=== PATIENT | male | born 1955 | race Hispanic/Latino ===

== ENCOUNTER 2019-06-15 13:25 | Emergency (ER) | payer OTHER, MEDICARE, SELFPAY ==
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
[2019-06-15 13:40] VITALS: BP 136/78; PULSE 69; RESP 16; TEMP 37.2; O2SAT 99
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
== END 2019-06-15 15:05 | disposition home or self-care (01) ==
PROVIDERS: Emergency Provider Emergency Medicine; PCP Internal Medicine
DX: S16.1XXA Strain of muscle, fascia and tendon at neck level, initial encounter (principal); F17.200 Nicotine dependence, unspecified, uncomplicated; K86.81 Exocrine pancreatic insufficiency; V53.5XXA Driver of pick-up truck or van injured in collision with car, pick-up truck or van in traffic accident, initial encounter
CPT/HCPCS: 72040; 99283

== ENCOUNTER 2019-10-31 11:02 | Outpatient (CLI) | payer MEDICARE, SELFPAY ==
[2019-10-31 11:57] LABS: Basophils Percent Auto 0.6 % (0.2-1.2); Eosinophils Absolute Auto 0.1 K/mm3 (0-0.3); Eosinophils Percent Auto 1.8 % (0-4.4); Hematocrit 42.5 % (42.0-52.0); Hemoglobin 14.1 g/dL (14.0-18.0); Immature Granulocyte Absolute 0.01 K/mm3 (0.00-0.031); Immature Granulocyte Percent A 0.2 % (0-0.5); Lymphocytes Absolute Auto 2.61 K/mm3 (0.9-3.2); Lymphocytes Percent Auto 39.9 % (18.3-44.2); Mean Corpuscular HGB Conc 33.2 g/dl (32-36); Mean Corpuscular Hemoglobin 28.2 pg (26-34); Mean Platelet Volume 10.1 fl (7.4-10.4); Monocytes Absolute Auto 0.5 K/mm3 (0.1-0.6); Monocytes Percent Auto 7.5 % (2.6-8.5); Neutrophils Absolute Auto 3.3 K/mm3 (1.3-6.7); Platelet Count Result 235 k/mm3 (150-375); Red Cell Distribution Width 14.9 % (11.5-14.5); White Blood Count 6.5 K/mm3 (4.5-10.0)
[2019-10-31 12:17] LABS: Alanine Aminotransferase 17 U/L (4-50); Aspartate Amino Transferase 22 U/L (17-59); Blood Urea Nitrogen 21 mg/dL (9-20); Carbon Dioxide 22 mmol/L (22-30); Chloride 109 mmol/L (98-107); Cholesterol 177 mg/dL (0-200); Estimated Glomerular Filt Rate > 60; Glucose 128 mg/dL (75-110); HDL Direct 34 mg/dL; Magnesium 1.8 mg/dL (1.6-2.3); Sodium 137 mmol/L (137-145); Triglycerides 98 mg/dL (<150); Uric Acid 4.7 mg/dL (3.5-8.5)
[2019-10-31 12:22] LABS: Hemoglobin A1C 7.2 % (<5.7)
[2019-10-31 12:28] LABS: LDL Cholesterol Direct 125 mg/dL
[2019-10-31 12:51] LABS: Free T4 Free Thyroxine 1.14 ng/mL (0.78-2.19)
[2019-10-31 13:01] LABS: Prostate Specific Antigen 1.2 ng/mL (< OR = 4.0)
[2019-10-31 13:41] LABS: Folic Acid 11.4 ng/mL (2.76->20)
[2019-11-04 13:22] LABS: Testosterone Free 31.6 pg/mL (35.0-155.0); Testosterone Total 298 ng/dL (250-1100)
== END 2019-10-31 11:03 | disposition home or self-care (01) ==
LOC: ANHLAB 11:04
PROVIDERS: PCP Internal Medicine; Visit Provider Internal Medicine
DX: E11.9 Type 2 diabetes mellitus without complications (principal); I10 Essential (primary) hypertension; R53.83 Other fatigue; E56.9 Vitamin deficiency, unspecified; N52.1 Erectile dysfunction due to diseases classified elsewhere; Z13.21 Encounter for screening for nutritional disorder; E78.2 Mixed hyperlipidemia; Z12.5 Encounter for screening for malignant neoplasm of prostate; K86.81 Exocrine pancreatic insufficiency; E55.9 Vitamin D deficiency, unspecified
CPT/HCPCS: 36415; 80048; 80061; 82306; 82607; 82746; 83036; 83735; 84153; 84402; 84403; 84439; 84443; 84450; 84460; 84550; 85025; G0103

== ENCOUNTER 2020-09-30 10:45 | Outpatient (CLI) | payer MEDICARE, SELFPAY ==
[2020-09-30 11:34] LABS: Hemoglobin A1C 8.9 % (<5.7)
[2020-09-30 11:38] LABS: Alanine Aminotransferase 18 U/L (4-50); Albumin Level 4.1 g/dL (3.5-5.1); Alkaline Phosphatase 110 U/L (38-126); Anion Gap 9 mmol/L (8-16); Aspartate Amino Transferase 20 U/L (17-59); Bilirubin,Total 0.4 mg/dL (0.2-1.3); Blood Urea Nitrogen 19 mg/dL (9-20); Calcium 9.9 mg/dL (8.4-10.2); Carbon Dioxide 26 mmol/L (22-30); Chloride 104 mmol/L (98-107); Cholesterol 270 mg/dL (0-200); Estimated Glomerular Filt Rate > 60; Glucose 288 mg/dL (75-110); HDL Direct 39 mg/dL; Potassium 4.5 mmol/L (3.4-5.0); Sodium 139 mmol/L (137-145); Triglycerides 154 mg/dL (<150)
[2020-09-30 11:48] LABS: LDL Cholesterol Direct 158 mg/dL
[2020-09-30 12:08] LABS: Prostate Specific Antigen 1.2 ng/mL (< OR = 4.0)
[2020-09-30 12:14] LABS: Vitamin D 25 Hydroxy 43.3 ng/mL
[2020-10-03 12:36] LABS: Testosterone Total 271 ng/dL (250-1100)
== END 2020-09-30 10:46 | disposition home or self-care (01) ==
PROVIDERS: PCP Internal Medicine; Visit Provider Nurse Practitioner
DX: Z12.5 Encounter for screening for malignant neoplasm of prostate (principal); E55.9 Vitamin D deficiency, unspecified; E29.1 Testicular hypofunction; E11.9 Type 2 diabetes mellitus without complications
CPT/HCPCS: 36415; 80053; 80061; 82306; 83036; 84153; 84403; G0103

== ENCOUNTER 2020-10-04 14:29 | Emergency (ER) | payer MEDICARE, SELFPAY ==
[2020-10-04] VITALS (15 sets, daily range): BP systolic 112–137; BP diastolic 66–86; PULSE 60–83; RESP 14–29; TEMP 36.3–36.8; O2SAT 88–100
--- NOTE | ~2020-10-04 | CT_ITS ---
EXAMINATION: CT lumbar spine wo con DATE: 10/04/2020 16:45 INDICATION: Back pain TECHNIQUE: Computed tomography (CT) of the lumbar spine was performed without intravenous contrast. A utomated exposure control and iterative reconstruction technique were employed. Exam dose: 483.15 mG y-cm total exam DLP. COMPARISON: 09/15/2015 lumbar spine 04/05/2011 CT lumbar spine 02/25/2018 MRI lumbar spine FINDINGS: Normal alignment of the lumbar spine. No fracture or bone destruction is evident. There is degenerative change at the apophyseal joints L4-5 and L5-S1, with associated minimal grade 1 anterolisthesis at L4-5. Moderate degenerative disc disease at T11-12. Mild degenerative disc disease at T12-L1. There is moderately severe degenerative disc disease at L5-S1 with prominent posterior disc bulging. Abdominal aortic and iliac arterial calcifications as well as prominent proximal bilateral renal tammy ry, celiac and superior mesenteric artery calcifications. No abdominal aortic aneurysm.. Lumbar interspace heights are otherwise relatively well preserved.. IMPRESSION: Degenerative spondylosis of the lower thoracic and lumbar spine, greatest at L5-S1 Degenerative changes apophyseal joints with associated minimal grade 1 anterolisthesis at L4-5 Reviewed, dictated and finalized at Location A. Reviewed, dictated and finalized at location A. IMPRESSION: Degenerative spondylosis of the lower thoracic and lumbar spine, g reatest at L5-S1 Degenerative changes apophyseal joints with associated minimal grade 1 anteroli sthesis at L4-5
--- NOTE | ~2020-10-04 | XR_ITS ---
XR chest 1V portable DATE: 10/04/2020 15:11 INDICATION: Right-sided weakness TECHNIQUE: Portable AP chest on 10/04/2020 at 1512 hours COMPARISON: 03/13/2010 two-view chest FINDINGS: Normal heart size. Mild aortic unfolding. No hilar or mediastinal enlargement. No pulmonary infiltrate or consolidation, pleural effusion or pulmonary vascular congestion or pneumothorax. Diffuse osteopenia. Old healed inferior displaced midshaft right clavicle fracture IMPRESSION: No active cardiopulmonary disease Reviewed, dictated and finalized at location A.
--- NOTE | ~2020-10-04 | CT_ITS ---
EXAMINATION: CTA brain carotid EXAM DATE: 10/04/2020 16:45 INDICATION: Right-sided hemiparesis. TECHNIQUE: Noncontrast head CT. Spiral CTA of the carotid arteries was performed with intravenous i njection 100 cc of Omnipaque 350. Axial, coronal, sagittal reformatted images reviewed. Additional r eformatted images created on dedicated 3-D workstation. NASCET comparable standard used to assess th e degree of arterial stenosis. Spiral CT angiogram cerebral arteries performed with the same intrave nous injection of contrast. Source images of the brain CTA transferred to dedicated workstation for 3 -D rotational image creation. Coronal, sagittal maximum intensity pixel images also reviewed. The d ose-length product (DLP) for this examination was 1602.92 mGy-cm. The exposure was tailored accordi ng to patient size, and iterative reconstruction (ASIR) was used as additional dose reduction techniq ue. There is no prior study for comparison. FINDINGS: Mild arteriosclerosis at the origins of the great vessels without stenosis. The vertebral a rteries are codominant. Mild left common carotid artery arterial sclerosis at its mid aspect without stenosis. Minimal right carotid bulb arterial sclerosis. 0% stenosis bilaterally. There is mild bilat eral carotid siphon arterial sclerosis without stenosis. There is no carotid or vertebral basilar ar terial dissection or fibromuscular dysplasia. There are no cerebral artery aneurysms. There is symmet antoni cerebral artery arborization. The sagittal, transverse and sigmoid sinuses enhance normally, no v enous sinus thrombosis. Internal cerebral veins also enhance normally. There is no acute intraparenchymal hemorrhage. No evidence of intraparenchymal brain mass lesion. N o evidence of acute infarction. There is mild to moderate periventricular and subcortical hypodensity , nonspecific but probably related to small vessel ischemic disease. There is mild to moderate prom inence of the sulci and ventricles related to cerebral atrophy. There is no mass effect or midline shift. There is no obstructive hydrocephalus suspected. There are no extra-axial collections. Incidental Findings: Moderate cervical spondylosis. IMPRESSION: 1. No acute carotid or intracranial findings. 2. Age-related intracranial findings. Reviewed, dictated and finalized at location A.
--- NOTE | 2020-10-04 14:59 | ECG_ITS ---
Measurements Intervals [place] Rate: 80 P: 28 [place]: 174 QRS: -57 QRSD: 107 T: 38 QT: 368 QTc: 427 Interpretive Statements SINUS RHYTHM LEFT ANTERIOR FASCICULAR BLOCK EARLY PRECORDIAL R/S TRANSITION ABNORMAL ECG Electronically Signed On 10-05-2020 7:35:42 CDT by Cuong Caballero D.O.
--- NOTE | 2020-10-04 15:03 | ED.NEUROSD ---
HPI - Neuro Symptoms/Deficit General Chief Complaint: Neuro Symptoms/Deficit Stated Complaint: might have had a stroke Time Seen by Provider: 10/04/20 14:44 Source: patient, family and RN notes reviewed Mode of arrival: ambulatory Limitations: language barrier History of Present Illness HPI Narrative: This is a 65 year old male who presents for evaluation of right leg weakness. Patient states he woke up this morning at 500 am. He noticed when he was getting his coffee together his right leg weak. He state this made him fall, but he denies hitting his head or LOC. He states he went back to bed to sleep but when he woke up with the same symptoms. He denies headache, dizziness, blurred vision, numbness tingling, nausea or vomiting. He reports chronic low back pain that radiates down his right leg. He has had this pain for years. HE denies history of stroke. Related Data Home Medications Medication Instructions Recorded Confirmed fenofibrate micronized 67 mg 67 mg PO DAILY 09/24/20 09/24/20 capsule Allergies Allergy/AdvReac Type Severity Reaction Status Date / Time codeine Allergy Intermediate Itching Verified 10/04/20 14:50 Review of Systems Review of Systems: All systems reviewed & are unremarkable except as noted in HPI and below PMFSH Past Medical History Medical History (Updated 10/05/20 @ 07:48 by Patricia Corcoran MD) Diabetic eye exam exam on 07/19/2018 Dr. Jim López M.D. Exocrine pancreatic insufficiency Testicular hypogonadism Family History Family History Father Family history of lung cancer Other Family history of arthritis Social History Social History (Updated 09/24/20 @ 13:27 by Saskia Coyne MA) Years smoked: 25 Smoking status: Current every day smoker Tobacco type: cigarettes Second hand tobacco smoke exposure: Yes Alcohol intake: former Exam Const: General: no acute distress and alert Orientation/consciousness: patient oriented x3 HENMT: Head: normocephalic Face and sinus: normal facial exam, sinuses nontender and face symmetric Mouth: Yes Normal oral and palatal mucosa present, Yes lip normal, Yes oropharynx normal and Yes moist mucous membranes Eyes: Pupils: Equal, round and reactive pupils present EOM: EOMs intact bilaterally Resp: Effort & Inspection: normal respiratory effort and no retractions Auscultation: clear to auscultation bilaterally Cardio: Rate: regular rate Rhythm: regular rhythm Heart sounds: no murmurs Other: bilateral strong pedal pulses GI: GI Palp: Yes Soft to palpation, No Tenderness to palpation present (GI) and No Guarding due to palpation present (GI) Auscultation: normal bowel sounds Skin: General skin exam: normal color Rashes: no rashes Neuro: General: patient oriented x3, moves all extremities and CN's II-XI intact bilaterally Cranial nerves: Yes Nystagmus not present Speech: normal speech Psych: Affect: normal affect Course Reevaluation(s) Reevaluation #1: PAtient states his weakness has improved. His does not appear to have drift at this time. Date: 10/04/20 Time: 18:38 Date: 10/04/20 Time: 18:56 Consultations Consultation #1: I spoke with stroke attending, Dr. Smith . He agrees patient to came be transferred to any [facility] hospital for stroke work up. He is not candidate for tpa or intervention at this time. Date: 10/04/20 Time: 18:39 Consultation #2: I spoke with [facility] improvement rn . She states patient has been accepted to [facility] by Dr. King ( hospitalist) with Dr. Blanco (neurologist. Date: 10/04/20 Time: 18:55 Vital Signs Vital signs: Vital Signs Temperature 98.2 F 10/04/20 14:38 Pulse Rate 83 10/04/20 14:38 Respiratory Rate 20 10/04/20 14:38 Pulse Oximetry 95 10/04/20 14:38 Temperature 98.2 F 10/04/20 21:40 Pulse Rate 60 10/04/20 21:40 Respiratory Rate 18 10/04/20 21:40 Blood Pressure 129/83 10/04/20
[2020-10-04 15:50] LABS: Basophils Percent Auto 0.4 % (0.2-1.2); Eosinophils Absolute Auto 0.1 K/mm3 (0-0.3); Eosinophils Percent Auto 1.5 % (0-4.4); Hematocrit 47.8 % (42.0-52.0); Hemoglobin 15.8 g/dL (14.0-18.0); Immature Granulocyte Absolute 0.03 K/mm3 (0.00-0.031); Immature Granulocyte Percent A 0.4 % (0-0.5); Lymphocytes Absolute Auto 2.17 K/mm3 (0.9-3.2); Lymphocytes Percent Auto 28.6 % (18.3-44.2); Mean Corpuscular HGB Conc 33.1 g/dl (32-36); Mean Corpuscular Hemoglobin 27.4 pg (26-34); Mean Platelet Volume 10.5 fl (7.4-10.4); Monocytes Absolute Auto 0.6 K/mm3 (0.1-0.6); Monocytes Percent Auto 7.4 % (2.6-8.5); Neutrophils Absolute Auto 4.7 K/mm3 (1.3-6.7); Neutrophils Percent Auto 61.7 % (45.5-73.1); Platelet Count Result 182 k/mm3 (150-375); Red Blood Count 5.76 M/mm3 (4.6-6.20); Red Cell Distribution Width 14.3 % (11.5-14.5); White Blood Count 7.6 K/mm3 (4.5-10.0)
[2020-10-04 15:52] LABS: Add Urine Microscopic? YES; Appearance Urine Clear (Clear); Bilirubin Urine Negative (Negative); Blood Urine Negative (Negative); Color Urine Yellow (Yellow); Glucose Urine UA 3+ mg/dL (Negative); Ketones Urine Negative (Negative); Leukocyte Esterase Ur Negative LEU/UL (Negative); Nitrate Urine Negative (Negative); Protein Urine 2+ mg/dL (Negative); Specific Grav Ur 1.021 (1.001-1.035); Urobilinogen Urine Negative mg/dL (<2.0); WBC Urine 0-3 /hpf
[2020-10-04 15:59] LABS: Alanine Aminotransferase 14 U/L (4-50); Albumin Level 3.9 g/dL (3.5-5.1); Alkaline Phosphatase 102 U/L (38-126); Anion Gap 10 mmol/L (8-16); Aspartate Amino Transferase 20 U/L (17-59); Bilirubin,Total 0.5 mg/dL (0.2-1.3); Blood Urea Nitrogen 24 mg/dL (9-20); Calcium 9.3 mg/dL (8.4-10.2); Carbon Dioxide 22 mmol/L (22-30); Chloride 105 mmol/L (98-107); Estimated CRCL calculation 72 ml/min; Estimated Glomerular Filt Rate > 60; Glucose 322 mg/dL (75-110); INR 0.9; Lipase 130 U/L (23-300); Potassium 4.3 mmol/L (3.4-5.0); Prothrombin Time 12.3 Seconds (11.1-14.7); Sodium 137 mmol/L (137-145)
[2020-10-04 16:00] LABS: Partial Thromboplastin Time 26.3 SECONDS (22.3-36.8)
[2020-10-04 16:11] LABS: Troponin I < 0.012 ng/mL (0.000-0.034)
[2020-10-04] MEDS: SODIUM CHLORIDE 0.9% IV 1,000 ML 999 ML IV CONT (16:38)
--- NOTE | 2020-10-04 20:40 | PC.NURSE ---
Report called to Ar[facility] at [facility].
--- NOTE | 2020-10-04 20:46 | PC.NURSE ---
Addendum entered by Meghan Nunes 10/04/20 20:50: [facility] and [facility] unavailble tonight. Original Note: called [facility] to request transport. ETA [id number]
--- NOTE | 2020-10-04 20:58 | PC.NURSE ---
called [facility] to request transport. ETA drive time from [place]. cancelled [place].
[2020-10-04 21:06] LABS: Glucose Point of Care 165 mg/dl (65-105)
== END 2020-10-04 21:40 | disposition short-term general hospital (02) ==
PROVIDERS: Emergency Provider General Practice; PCP Internal Medicine
DX: R53.1 Weakness (principal); M54.5 Low back pain; G89.29 Other chronic pain; F17.210 Nicotine dependence, cigarettes, uncomplicated; I44.4 Left anterior fascicular block; M47.817 Spondylosis without myelopathy or radiculopathy, lumbosacral region
CPT/HCPCS: 36415; 70496; 70498; 71045; 72131; 80053; 81001; 82948; 83690; 84484; 85025; 85610; 85730; 86850; 86900; 86901; 93005; 96360; 99285; J7030; Q9967

== ENCOUNTER 2021-01-31 10:48 | Outpatient (CLI) | payer MEDICARE, SELFPAY ==
[2021-01-31 12:13] LABS: Alanine Aminotransferase 17 U/L (4-50); Albumin Level 4.6 g/dL (3.5-5.1); Alkaline Phosphatase 65 U/L (38-126); Anion Gap 11 mmol/L (8-16); Aspartate Amino Transferase 24 U/L (17-59); Bilirubin,Total 0.3 mg/dL (0.2-1.3); Blood Urea Nitrogen 13 mg/dL (9-20); Calcium 9.7 mg/dL (8.4-10.2); Carbon Dioxide 22 mmol/L (22-30); Chloride 108 mmol/L (98-107); Cholesterol 128 mg/dL (0-200); Estimated Glomerular Filt Rate > 60; Glucose 160 mg/dL (65-110); HDL Direct 42 mg/dL; Potassium 4.7 mmol/L (3.4-5.0); Sodium 141 mmol/L (137-145); Triglycerides 61 mg/dL (<150)
[2021-01-31 12:24] LABS: LDL Cholesterol Direct 72 mg/dL
[2021-01-31 12:56] LABS: Hemoglobin A1C 6.6 % (<5.7)
== END 2021-01-31 10:49 | disposition home or self-care (01) ==
PROVIDERS: PCP Internal Medicine; Visit Provider Internal Medicine
DX: E78.5 Hyperlipidemia, unspecified (principal); E11.65 Type 2 diabetes mellitus with hyperglycemia
CPT/HCPCS: 36415; 80053; 80061; 83036

== ENCOUNTER 2021-06-22 09:09 | Outpatient (CLI) | payer MEDICARE, SELFPAY ==
[2021-06-22 10:04] LABS: Alanine Aminotransferase 14 U/L (4-50); Albumin Level 4.5 g/dL (3.5-5.1); Alkaline Phosphatase 59 U/L (38-126); Anion Gap 10 mmol/L (8-16); Aspartate Amino Transferase 22 U/L (17-59); Bilirubin,Total 0.4 mg/dL (0.2-1.3); Blood Urea Nitrogen 19 mg/dL (9-20); Carbon Dioxide 22 mmol/L (22-30); Chloride 108 mmol/L (98-107); Cholesterol 207 mg/dL (0-200); Estimated Glomerular Filt Rate > 60; Glucose 193 mg/dL (65-110); HDL Direct 35 mg/dL; Sodium 140 mmol/L (137-145); Triglycerides 100 mg/dL (<150)
[2021-06-22 10:11] LABS: Hemoglobin A1C 7.8 % (<5.7)
[2021-06-22 10:15] LABS: LDL Cholesterol Direct 130 mg/dL
[2021-06-26 13:23] LABS: Testosterone Total 375 ng/dL (250-1100)
== END 2021-06-22 09:10 | disposition home or self-care (01) ==
PROVIDERS: PCP Internal Medicine; Visit Provider Internal Medicine
DX: E78.5 Hyperlipidemia, unspecified (principal); E11.65 Type 2 diabetes mellitus with hyperglycemia; Z79.4 Long term (current) use of insulin; Z79.899 Other long term (current) drug therapy
CPT/HCPCS: 36415; 80053; 80061; 83036; 84403

== ENCOUNTER 2021-08-02 03:58 | Emergency (ER) | payer MEDICARE, SELFPAY ==
--- NOTE | ~2021-08-02 | XR_ITS ---
EXAMINATION: XR abdomen/kub 1V INDICATION: Constipation TECHNIQUE: Supine views of the abdomen were obtained on 2 radiographs. COMPARISON: None FINDINGS: The bowel gas pattern is nonspecific. No dilated loops of bowel are evident. A moderate vol ume of colonic stool is present. Phleboliths are noted in the pelvis. There is moderate lower lumbar spondylosis. IMPRESSION: 1. Moderate volume of colonic stool. Reviewed, dictated and finalized at location A.
[2021-08-02 04:03] VITALS: BP 123/76; PULSE 86; RESP 16; TEMP 36.8; O2SAT 99
[2021-08-02 04:54] VITALS: BP 118/73; PULSE 64; RESP 18; O2SAT 96
--- NOTE | 2021-08-02 04:54 | ED.ABDPAIN ---
HPI - Abdominal Pain General Chief Complaint: Abdominal Pain Stated Complaint: CONSTIPATED Time Seen by Provider: 08/02/21 04:00 History of Present Illness HPI narrative: Patient is a 66-year-old male who presents ER with concerns for constipation. Reports he has not had a bowel movement in 2 days. He is attempted to take Dulcolax pills without improvement. He is passing gas. He reports cramping and bloating. No nausea or vomiting. No history of bowel obstruction. Only previous history is a inguinal hernia repair in regards to surgery. Reports some chronic urinary issues and has been on antibiotics for prostatitis. No urinary frequency urgency or dysuria at this time. Related Data Home Medications Medication Instructions Recorded Confirmed clopidogrel 75 mg tablet 75 mg PO DAILY 02/03/21 06/12/21 Allergies Allergy/AdvReac Type Severity Reaction Status Date / Time codeine Allergy Intermediate Itching Verified 06/12/21 10:21 Review of Systems Review of Systems: All systems reviewed & are unremarkable except as noted in HPI and below Constitutional: Constitutional: Denies chills, Denies fever(s) and Denies weakness ENT: Denies nasal congestion and Denies sore throat Respiratory: Respiratory: Denies cough, Denies dyspnea and Denies wheezing Gastrointestinal: Gastrointestinal: Denies abdominal pain, Reports bloating, Reports constipation, Denies nausea and Denies vomiting Genitourinary: Genitourinary: Denies dysuria, Denies urinary frequency and Denies urinary incontinence [facility] Past Medical History Medical History (Updated 08/02/21 @ 05:02 by Jacky Samayoa MD) Diabetic eye exam exam on 07/19/2018 Dr. Jim López M.D. Erectile dysfunction due to diseases classified elsewhere Exocrine pancreatic insufficiency Hemoglobin A1c less than 7.0% Hypertensive heart disease without heart failure (12/10/15) PFO (patent foramen ovale) s/p closure Poorly controlled diabetes mellitus Testicular hypogonadism Type 2 diabetes mellitus without complications Uncontrolled type 2 diabetes mellitus with insulin therapy Surgical History Surgical History (Updated 08/02/21 @ 04:57 by Jacky Samayoa MD) History of inguinal hernia repair Family History Family History Father Family history of lung cancer Other Family history of arthritis Social History Social History (Updated 06/12/21 @ 10:21 by Ena Timmons Smoking packs per day: 0.2 Smoking cigarettes per day: 4.0 Years smoked: 25 Smoking pack-years: 5.00 Smoking status: Current every day smoker (cigars) Tobacco type: cigars Second hand tobacco smoke exposure: Yes Alcohol intake: former Substance use: never Substance use type: does not use Exam Narrative: GENERAL: Well-appearing, well-nourished, and in no acute distress. HEAD: Normocephalic, atraumatic. ENT: Mucous membranes moist. CHEST: Clear to auscultation. No respiratory distress. HEART: Regular rate and rhythm. Normal peripheral pulses. ABDOMEN: Soft, nontender, nondistended, normal active bowel sounds. EXTREMITIES: Normal range of motion. No edema. SKIN: Warm, dry, no rash. NEURO: Alert and oriented x3. PSYCH: Normal mood and affect. Course Course Emergency Course: Informed of imaging results. Will give mag citrate discharge. Vital Signs Vital signs: Vital Signs Temperature 98.3 F 08/02/21 04:03 Pulse Rate 86 08/02/21 04:03 Respiratory Rate 16 08/02/21 04:03 Blood Pressure 123/76 08/02/21 04:03 Pulse Oximetry 99 08/02/21 04:03 Temperature 98.3 F 08/02/21 04:03 Pulse Rate 64 08/02/21 04:54 Respiratory Rate 18 08/02/21 04:54 Blood Pressure 118/73 08/02/21 04:54 Pulse Oximetry 96 08/02/21 04:54 MDM - Abdominal Pain Imaging Data My impression: KUB: Nonobstructive bowel gas pattern. Discharge Plan Discharge Clinical Impression: Constipation P
[2021-08-02] MEDS: MAGNESIUM CITRATE 300 ML BTL PO (05:16)
== END 2021-08-02 05:47 | disposition home or self-care (01) ==
PROVIDERS: Emergency Provider Emergency Medicine; PCP Internal Medicine
DX: K59.00 Constipation, unspecified (principal); E11.9 Type 2 diabetes mellitus without complications; K86.81 Exocrine pancreatic insufficiency; I11.9 Hypertensive heart disease without heart failure; F17.290 Nicotine dependence, other tobacco product, uncomplicated; N52.1 Erectile dysfunction due to diseases classified elsewhere; Z79.84 Long term (current) use of oral hypoglycemic drugs; Z79.82 Long term (current) use of aspirin
CPT/HCPCS: 74018; 99283; A9270

== ENCOUNTER 2022-01-29 09:45 | Outpatient (CLI) | payer MEDICARE, SELFPAY ==
[2022-01-29 10:40] LABS: Alanine Aminotransferase 17 U/L (6-50); Albumin Level 4.3 g/dL (3.5-5.1); Alkaline Phosphatase 71 U/L (38-126); Anion Gap 12 mmol/L (8-16); Aspartate Amino Transferase 19 U/L (17-59); Bilirubin,Total 0.4 mg/dL (0.2-1.3); Blood Urea Nitrogen 17 mg/dL (9-20); Calcium 9.2 mg/dL (8.4-10.2); Carbon Dioxide 26 mmol/L (22-30); Chloride 103 mmol/L (98-107); Cholesterol 175 mg/dL (0-200); Estimated Glomerular Filt Rate > 60; Glucose 137 mg/dL (65-110); HDL Direct 35 mg/dL; Potassium 4.2 mmol/L (3.4-5.0); Sodium 141 mmol/L (137-145); Triglycerides 92 mg/dL (<150)
[2022-01-29 10:41] LABS: Hemoglobin A1C 6.6 % (<5.7)
[2022-01-29 10:43] LABS: Creatinine Urine 147.4 mg/dL
[2022-01-29 10:48] LABS: MALB Creatinine Ratio 88.7 mg/g (0-30); Microalbumin Urine Random 130.8 mg/L (0-16.7)
[2022-01-29 10:51] LABS: LDL Cholesterol Direct 106 mg/dL
[2022-02-02 23:19] LABS: Testosterone Total 282 ng/dL (250-1100)
== END 2022-01-29 09:46 | disposition home or self-care (01) ==
LOC: ANHLAB 09:49
PROVIDERS: PCP Internal Medicine; Visit Provider Internal Medicine
DX: E78.5 Hyperlipidemia, unspecified (principal); E11.9 Type 2 diabetes mellitus without complications; Z79.899 Other long term (current) drug therapy
CPT/HCPCS: 36415; 80053; 80061; 82043; 83036; 84403

== ENCOUNTER 2022-06-14 07:25 | Outpatient (CLI) | payer MEDICARE, SELFPAY ==
[2022-06-14 07:43] LABS: Basophils Percent Auto 0.4 % (0.2-1.2); Eosinophils Absolute Auto 0.1 K/mm3 (0-0.3); Eosinophils Percent Auto 1.8 % (0-4.4); Hemoglobin 13.1 g/dL (14.0-18.0); Immature Granulocyte Absolute 0.02 K/mm3 (0.00-0.031); Immature Granulocyte Percent A 0.3 % (0-0.5); Lymphocytes Percent Auto 27.7 % (18.3-44.2); Mean Corpuscular Hemoglobin 27.8 pg (26-34); Mean Platelet Volume 9.8 fl (7.4-10.4); Monocytes Absolute Auto 0.5 K/mm3 (0.1-0.6); Monocytes Percent Auto 6.3 % (2.6-8.5); Neutrophils Absolute Auto 5.1 K/mm3 (1.3-6.7); Neutrophils Percent Auto 63.5 % (45.5-73.1); Platelet Count Result 222 k/mm3 (150-375); Red Blood Count 4.71 M/mm3 (4.6-6.20); Red Cell Distribution Width 14.9 % (11.5-14.5); White Blood Count 7.9 K/mm3 (4.5-10.0)
[2022-06-14 07:44] LABS: Appearance Urine Clear (Clear); Bilirubin Urine Negative (Negative); Blood Urine Trace-intact (Negative); Color Urine Yellow (Yellow); Glucose Urine UA 1+ mg/dL (Negative); Ketones Urine Negative (Negative); Leukocyte Esterase Ur Negative LEU/UL (NEGATIVE); Nitrate Urine Negative (Negative); Protein Urine 2+ mg/dL (Negative); Urobilinogen Urine 0.2 mg/dL (<2.0); pH Urine 6.5 (5.0-9.0)
[2022-06-14 07:55] LABS: RBC Urine 0-2 /hpf (0-2); WBC Urine 0-3 /hpf (0-3)
[2022-06-14 07:58] LABS: Add Urine Microscopic? YES
[2022-06-14 08:04] LABS: Alanine Aminotransferase 35 U/L (6-50); Albumin Level 4.3 g/dL (3.5-5.1); Alkaline Phosphatase 85 U/L (38-126); Anion Gap 7 mmol/L (8-16); Aspartate Amino Transferase 37 U/L (17-59); Bilirubin,Total 0.3 mg/dL (0.2-1.3); Blood Urea Nitrogen 25 mg/dL (9-20); Calcium 8.9 mg/dL (8.4-10.2); Carbon Dioxide 25 mmol/L (22-30); Chloride 105 mmol/L (98-107); Estimated Glomerular Filt Rate > 60; Glucose 152 mg/dL (65-110); Potassium 4.1 mmol/L (3.4-5.0); Sodium 137 mmol/L (137-145)
[2022-06-14 08:06] LABS: Creatinine Urine 73.2 mg/dL
[2022-06-14 08:08] LABS: Hemoglobin A1C 6.8 % (<5.7)
[2022-06-14 08:53] LABS: MALB Creatinine Ratio 405.5 mg/g (0-30); Microalbumin Urine Random 296.8 mg/L (0-16.7)
== END 2022-06-14 07:26 | disposition home or self-care (01) ==
PROVIDERS: PCP Internal Medicine; Visit Provider Nurse Practitioner Family
DX: R30.0 Dysuria (principal); N18.30 Chronic kidney disease, stage 3 unspecified; E11.22 Type 2 diabetes mellitus with diabetic chronic kidney disease
CPT/HCPCS: 36415; 80053; 81001; 82043; 83036; 85025; 87086

== ENCOUNTER 2022-08-02 08:28 | Emergency (ER) | payer MEDICARE, SELFPAY ==
--- NOTE | ~2022-08-02 | XR_ITS ---
EXAMINATION: XR humerus RT DATE: 08/02/2022 09:24 INDICATION: Bruising and bleeding at the anterior mid right upper arm after being kicked by a horse TECHNIQUE: AP and lateral views of the right humerus were obtained. COMPARISON: None. FINDINGS: Old healed mid right clavicle fracture deformity. Bone alignment is otherwise normal. No acute fractu re. Mild osteoarthritis at the right glenohumeral joint with marginal osteophyte along the posterior rim of the glenoid. Focal prominent soft tissue swelling with increased underlying density at the ant erolateral proximal right upper arm consistent with a likely posttraumatic hematoma. Visualized porti on of the right lung are clear with no pneumothorax or pleural effusion. IMPRESSION: 1. Old healed right clavicle fracture deformity. No acute osseous abnormality. Reviewed, dictated and finalized at location A.
[2022-08-02 08:32] VITALS: BP 143/63; PULSE 70; RESP 16; TEMP 36.9; O2SAT 100
--- NOTE | 2022-08-02 09:12 | ED.GENADULT ---
HPI - General Adult General Chief complaint: Wound/Laceration Stated complaint: kicked by horse - right upper arm injury Time Seen by Provider: 08/02/22 08:51 Source: patient Mode of arrival: ambulatory Limitations: no limitations History of Present Illness HPI narrative: This is a 67-year-old male presents the ED via EMS with chief complaint of right upper arm injury onset this morning. States he was kicked in the right arm by a horse. He has pain in the right arm and no other joint. Reports a laceration to the right arm. Denies any further site of pain or injury. Related Data Allergies Allergy/AdvReac Type Severity Reaction Status Date / Time codeine Allergy Intermediate Itching Verified 07/22/22 13:48 Review of Systems Review of Systems: CONSTITUTIONAL: Denies fever, chills, or sweats. SKIN: Endorses laceration. Denies rash or itching. MUSCULOSKELETAL: Endorses right upper arm pain. Denies back pain, other joint pain, or myalgia. NEUROLOGIC: Denies headache, numbness, dizziness, or weakness. PSYCHIATRIC: Denies anxiety or depression. [facility] Past Medical History Medical History CVA (cerebral vascular accident) PFO Degenerative disc disease, lumbar Diabetic eye exam exam on 07/19/2018 Dr. Jim López M.D. Erectile dysfunction due to diseases classified elsewhere Exocrine pancreatic insufficiency Generalized anxiety disorder Hemoglobin A1c less than 7.0% Hypertensive heart disease without heart failure (12/10/15) PFO (patent foramen ovale) s/p closure Poorly controlled diabetes mellitus Testicular hypogonadism Type 2 diabetes mellitus without complications Uncontrolled type 2 diabetes mellitus with insulin therapy Surgical History Surgical History History of inguinal hernia repair Family History Family History Father Family history of lung cancer Other Family history of arthritis Social History Social History Smoking packs per day: 0.2 Smoking cigarettes per day: 4.0 Years smoked: 25 Smoking pack-years: 5.00 Smoking status: Current every day smoker Tobacco type: cigarettes and cigars Second hand tobacco smoke exposure: Yes Alcohol intake: never Substance use: never Substance use type: does not use Exam Narrative: GENERAL: Well-appearing, well-nourished, and in no acute distress. HEAD: Normocephalic, atraumatic. EYES: PERRLA and EOMI. NECK: Supple. No adenopathy or masses. EXTREMITIES: Right upper extremity NV intact distally. Muscles intact. Normal range of motion. No edema. SKIN: 3 cm gaping laceration to the right lateral humerus midshaft. Muscle structures intact. Warm, dry, no rash. NEURO: Alert and oriented x3. No focal deficits. PSYCH: Normal mood and affect. Course Vital Signs Vital signs: Vital Signs Temperature 98.4 F 08/02/22 08:32 Pulse Rate 70 08/02/22 08:32 Respiratory Rate 16 08/02/22 08:32 Blood Pressure 143/63 H 08/02/22 08:32 Pulse Oximetry 100 08/02/22 08:32 Temperature 98.4 F 08/02/22 08:32 Pulse Rate 70 08/02/22 08:32 Respiratory Rate 16 08/02/22 08:32 Blood Pressure 143/63 H 08/02/22 08:32 Pulse Oximetry 100 08/02/22 08:32 Procedures Laceration Laceration 1: Date: 08/02/22 Time: 10:20 Site: upper extremity Side (If applicable): right (upper arm) Size (cm): 3 Description: linear Depth: involves muscle layer Local Anesthetic: lidocaine 1% and with epi Amount of anesthesia used (mL): 6 Pre-repair: wound explored, irrigated extensively and deep structures intact ====== Skin Level ====== Skin layer closed with: nylon Size (cm): 4-0 Number of sutures: 5 Technique: simple, interrupted
[2022-08-02] MEDS: TETANUS,DIPHTHERIA,AC PERTUSSIS ADULT (0.5 ML) BOOSTRIX IM (09:44)
[2022-08-02] MEDS: LIDO 1%/EPINEPHRINE 1:100,000 20 ML VIAL 10 ML INFILTRATE (09:45)
== END 2022-08-02 10:37 | disposition home or self-care (01) ==
PROVIDERS: Emergency Provider Physician Assistant; PCP Internal Medicine
DX: S41.111A Laceration without foreign body of right upper arm, initial encounter (principal); E11.9 Type 2 diabetes mellitus without complications; I11.9 Hypertensive heart disease without heart failure; K86.81 Exocrine pancreatic insufficiency; M51.36 Other intervertebral disc degeneration, lumbar region; F17.210 Nicotine dependence, cigarettes, uncomplicated; F17.290 Nicotine dependence, other tobacco product, uncomplicated; Z86.73 Personal history of transient ischemic attack (TIA), and cerebral infarction without residual deficits; Z79.82 Long term (current) use of aspirin; Z79.84 Long term (current) use of oral hypoglycemic drugs; W55.12XA Struck by horse, initial encounter
CPT/HCPCS: 12002; 12032; 73060; 90471; 90715; 99283

== ENCOUNTER 2022-08-30 11:00 | Outpatient (CLI) | payer MEDICARE, SELFPAY ==
--- NOTE | ~2022-08-30 | CT_ITS ---
CT Scan of the Chest without Contrast: Clinical Indication: Lung cancer screening, smoking history Technique: Contiguous sections were acquired throughout the chest without intravenous contrast. Dose reduction technique was used on this scan by utilizing automated exposure control and iterative recon struction technique. The dose-length product (DLP) was 87.72 mGy-cm. Findings: There is no evidence of any significant mediastinal, hilar or axillary lymphadenopathy.. Extensive co ronary artery calcifications are present. There is no evidence of pleural or pericardial effusion. The lungs are clear. No pulmonary nodules or infiltrates are noted. Images through the upper abdomen reveal no abnormalities. Impression: Lung RADS 1: Negative. 12 month follow-up screening CT advised. Reviewed, dictated and finalized at location . Impression: Lung RADS 1: Negative. 12 month follow-up screening CT advised.
== END 2022-08-30 11:01 | disposition home or self-care (01) ==
PROVIDERS: PCP Family Medicine; Visit Provider Family Medicine
DX: Z12.2 Encounter for screening for malignant neoplasm of respiratory organs (principal); Z87.891 Personal history of nicotine dependence
CPT/HCPCS: 71271

== ENCOUNTER 2022-12-27 07:06 | Outpatient (CLI) | payer MEDICARE, SELFPAY ==
[2022-12-27 07:54] LABS: Alanine Aminotransferase 23 U/L (6-50); Albumin Level 4.4 g/dL (3.5-5.1); Alkaline Phosphatase 84 U/L (38-126); Anion Gap 8 mmol/L (8-16); Aspartate Amino Transferase 25 U/L (17-59); Bilirubin,Total 0.4 mg/dL (0.2-1.3); Blood Urea Nitrogen 15 mg/dL (9-20); Calcium 9.5 mg/dL (8.4-10.2); Carbon Dioxide 25 mmol/L (22-30); Chloride 107 mmol/L (98-107); Cholesterol 175 mg/dL (0-200); Estimated Glomerular Filt Rate > 60; Glucose 178 mg/dL (65-110); HDL Direct 33 mg/dL; Potassium 4.6 mmol/L (3.4-5.0); Sodium 140 mmol/L (137-145); Triglycerides 136 mg/dL (<150)
[2022-12-27 08:05] LABS: LDL Cholesterol Direct 110 mg/dL
[2022-12-27 08:25] LABS: Prostate Specific Antigen 1.5 ng/mL (< OR = 4.0)
[2022-12-27 08:29] LABS: Hemoglobin A1C 7.5 % (<5.7)
== END 2022-12-27 07:07 | disposition home or self-care (01) ==
LOC: ANHLAB 07:07
PROVIDERS: PCP Nurse Practitioner; Visit Provider Nurse Practitioner
DX: E78.5 Hyperlipidemia, unspecified (principal); Z12.5 Encounter for screening for malignant neoplasm of prostate; E11.9 Type 2 diabetes mellitus without complications
CPT/HCPCS: 36415; 80053; 80061; 83036; 84153; G0103

== ENCOUNTER 2023-04-12 10:07 | Emergency (ER) | payer MEDICARE, SELFPAY ==
[2023-04-12 10:13] VITALS: BP 139/78; PULSE 75; RESP 18; TEMP 36.9; O2SAT 100
--- NOTE | 2023-04-12 10:16 | ED.GENADULT ---
HPI - General Adult General Chief complaint: Ear Stated complaint: Ears Irritation Time Seen by Provider: 04/12/23 10:17 Source: patient, RN notes reviewed and old records reviewed Mode of arrival: ambulatory Limitations: no limitations History of Present Illness HPI narrative: 68-year-old male presents to the [facility] with ear discomfort for 3 months, worse on left than the right. States that he saw his doctor month ago and they did not do anything. Onset (ago): month(s) (3) Treatments prior to arrival: none Related Data Allergies Allergy/AdvReac Type Severity Reaction Status Date / Time codeine Allergy Intermediate Itching Verified 04/12/23 10:17 Review of Systems Review of Systems: All systems reviewed & are unremarkable except as noted in HPI and below Constitutional: Constitutional: Reports no additional constitutional complaints Eyes: Eyes: Reports no additional eye complaints ENT: Reports as per HPI and Reports otalgia Cardiovascular: Cardiovascular: Reports no additional cardiovascular complaints, Denies chest pain and Denies dyspnea Respiratory: Respiratory: Reports no additional respiratory complaints, Denies chest congestion, Denies cough and Denies dyspnea Gastrointestinal: Gastrointestinal: Reports no additional gastrointestinal complaints, Denies abdominal pain, Denies nausea and Denies vomiting Musculoskeletal: Musculoskeletal: Reports no additional musculoskeletal complaints Integumentary/Breasts: Skin/Breast: Reports system reviewed and no additional complaints, except as docu Neurologic: Reports system reviewed and no additional complaints, except as documented Psychiatric: Psychiatric: Reports no additional psychiatric complaints Allergic/Immunologic: Allergic/Immunologic: Reports no additional allergic/immunologic complaints PMFSH Past Medical History Medical History CVA (cerebral vascular accident) PFO Degenerative disc disease, lumbar Diabetic eye exam exam on 07/19/2018 Dr. Jim López M.D. Erectile dysfunction due to diseases classified elsewhere Exocrine pancreatic insufficiency Generalized anxiety disorder Hemoglobin A1c less than 7.0% Hypertensive heart disease without heart failure (12/10/15) PFO (patent foramen ovale) s/p closure Poorly controlled diabetes mellitus Testicular hypogonadism Type 2 diabetes mellitus without complications Uncontrolled type 2 diabetes mellitus with insulin therapy Surgical History Surgical History History of inguinal hernia repair Family History Family History Father Family history of lung cancer Other Family history of arthritis Social History Social History Smoking packs per day: 0.2 Smoking cigarettes per day: 4.0 Years smoked: 25 Smoking pack-years: 5.00 Smoking status: Current every day smoker Tobacco type: cigarettes and cigars Second hand tobacco smoke exposure: Yes Additional smoking assessment comments: Pt said he quit smoking 3 days ago, too much money Alcohol intake: never Substance use: never Substance use type: does not use Concerned About Future Housing: No Difficulty Paying Gas/Electric Bills: No Difficulty Paying for Meds: No Currently Unemployed: No Comments At the time of my signature, I reviewed and agree with the nursing past medical, surgical, social, and family history. There is no relevant family history pertinent to the patient complaint. Exam Const: General: cooperative, healthy appearing, comfortable, no acute distress, well developed, alert and well nourished Nutritional Appearance: well nourished Orientation/consciousness: patient oriented x3 Limitations: no limitations HENMT: Head: normal to inspection Ears: hearing grossly normal bilaterally, externa
[2023-04-12 10:18] VITALS: BP 139/78; PULSE 75; RESP 18; TEMP 36.9; O2SAT 100
== END 2023-04-12 10:38 | disposition home or self-care (01) ==
PROVIDERS: Emergency Provider Nurse Practitioner; PCP Nurse Practitioner
DX: H61.22 Impacted cerumen, left ear (principal); Z87.891 Personal history of nicotine dependence; I11.0 Hypertensive heart disease with heart failure; I50.9 Heart failure, unspecified; E11.9 Type 2 diabetes mellitus without complications; Z79.4 Long term (current) use of insulin; Z86.73 Personal history of transient ischemic attack (TIA), and cerebral infarction without residual deficits; M51.36 Other intervertebral disc degeneration, lumbar region; F41.1 Generalized anxiety disorder
CPT/HCPCS: 69210; 99212; G0463

== ENCOUNTER 2023-07-14 08:12 | Outpatient (CLI) | payer MEDICARE, SELFPAY ==
[2023-07-14 09:08] LABS: Alanine Aminotransferase 16 U/L (6-50); Albumin Level 4.1 g/dL (3.5-5.1); Alkaline Phosphatase 83 U/L (38-126); Anion Gap 8 mmol/L (8-16); Aspartate Amino Transferase 21 U/L (17-59); Bilirubin,Total 0.4 mg/dL (0.2-1.3); Blood Urea Nitrogen 19 mg/dL (9-20); Calcium 9.4 mg/dL (8.4-10.2); Carbon Dioxide 24 mmol/L (22-30); Chloride 109 mmol/L (98-107); Cholesterol 207 mg/dL (0-200); Estimated Glomerular Filt Rate > 60; Glucose 189 mg/dL (65-110); HDL Direct 35 mg/dL; Potassium 4.4 mmol/L (3.4-5.0); Sodium 141 mmol/L (137-145); Triglycerides 162 mg/dL (<150)
[2023-07-14 09:19] LABS: LDL Cholesterol Direct 136 mg/dL
== END 2023-07-14 08:13 | disposition home or self-care (01) ==
PROVIDERS: PCP Nurse Practitioner; Visit Provider Nurse Practitioner
DX: E78.5 Hyperlipidemia, unspecified (principal); E11.9 Type 2 diabetes mellitus without complications
CPT/HCPCS: 36415; 80053; 80061; 83036

== ENCOUNTER 2023-10-08 11:04 | Emergency (ER) | payer MEDICARE, SELFPAY ==
[2023-10-08 11:20] VITALS: BP 151/86; PULSE 68; RESP 16; TEMP 36.7; O2SAT 100
--- NOTE | 2023-10-08 11:23 | ED.GENADULT ---
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 Reports blurry vision out of the corner of his right but looking forward normal vision. Also reports irritation to the lateral aspect of the right eye Denies any injury. No treatment prior to arrival Denies chest pain, abdominal pain, fevers, nausea, vomiting. Onset (ago): day(s) (3) Related Data Allergies Allergy/AdvReac Type Severity Reaction Status Date / Time codeine Allergy Intermediate Itching Verified 10/08/23 11:12 Review of Systems Review of Systems: All systems reviewed & are unremarkable except as noted in HPI and below Constitutional: Constitutional: Reports as per HPI and Reports headache(s) Eyes: Eyes: Reports as per HPI ENT: Reports system reviewed and no additional complaints, except as documented Cardiovascular: Cardiovascular: Reports no additional cardiovascular complaints, Denies chest pain and Denies dyspnea Respiratory: Respiratory: Reports no additional respiratory complaints, Denies chest congestion, Denies cough and Denies dyspnea Gastrointestinal: Gastrointestinal: Reports no additional gastrointestinal complaints, Denies abdominal pain, Denies nausea and Denies vomiting Musculoskeletal: Musculoskeletal: Reports no additional musculoskeletal complaints Integumentary/Breasts: Skin/Breast: Reports system reviewed and no additional complaints, except as docu Neurologic: Reports system reviewed and no additional complaints, except as documented Psychiatric: Psychiatric: Reports no additional psychiatric complaints Allergic/Immunologic: Allergic/Immunologic: Reports no additional allergic/immunologic complaints [facility] Past Medical History Medical History CVA (cerebral vascular accident) PFO Degenerative disc disease, lumbar Diabetic eye exam exam on 07/19/2018 Dr. Jim López M.D. Erectile dysfunction due to diseases classified elsewhere Exocrine pancreatic insufficiency Generalized anxiety disorder Hemoglobin A1c less than 7.0% Hypertensive heart disease without heart failure (12/10/15) PFO (patent foramen ovale) s/p closure Poorly controlled diabetes mellitus Testicular hypogonadism Type 2 diabetes mellitus without complications Uncontrolled type 2 diabetes mellitus with insulin therapy Surgical History Surgical History History of inguinal hernia repair Family History Family History Father Family history of lung cancer Other Family history of arthritis Social History Social History Smoking packs per day: 0.2 Smoking cigarettes per day: 4.0 Years smoked: 25 Smoking pack-years: 5.00 Smoking status: Current every day smoker Tobacco type: cigarettes and cigars Second hand tobacco smoke exposure: Yes Additional smoking assessment comments: Pt said he quit smoking 3 days ago, too much money Alcohol intake: never Substance use: never Substance use type: does not use Concerned About Future Housing: No Difficulty Paying Gas/Electric Bills: No Difficulty Paying for Meds: No Currently Unemployed: No Comments At the time of my signature, I reviewed and agree with the nursing past medical, surgical, social, and family history. There is no relevant family history pertinent to the patient complaint. Exam Const: General: cooperative, healthy appearing, comfortable, no acute distress, well developed, alert and well nourished Nutritional Appe
== END 2023-10-08 11:55 | disposition home or self-care (01) ==
PROVIDERS: Emergency Provider Nurse Practitioner; PCP Nurse Practitioner
DX: H57.11 Ocular pain, right eye (principal); R51.9 Headache, unspecified; M51.36 Other intervertebral disc degeneration, lumbar region; I11.9 Hypertensive heart disease without heart failure; E11.9 Type 2 diabetes mellitus without complications; Z79.4 Long term (current) use of insulin; Z86.73 Personal history of transient ischemic attack (TIA), and cerebral infarction without residual deficits; Z87.891 Personal history of nicotine dependence
CPT/HCPCS: 99212; G0463

== ENCOUNTER 2023-12-01 06:51 | Outpatient (CLI) | payer MEDICARE, SELFPAY ==
[2023-12-01 07:52] LABS: Alanine Aminotransferase 17 U/L (6-50); Albumin Level 4.3 g/dL (3.5-5.1); Alkaline Phosphatase 69 U/L (38-126); Anion Gap 12 mmol/L (4-12); Aspartate Amino Transferase 20 U/L (17-59); Bilirubin,Total 0.3 mg/dL (0.2-1.3); Blood Urea Nitrogen 21 mg/dL (9-20); Calcium 9.8 mg/dL (8.4-10.2); Carbon Dioxide 23 mmol/L (22-30); Chloride 106 mmol/L (98-107); Cholesterol 112 mg/dL (0-200); Estimated Glomerular Filt Rate > 60; Glucose 163 mg/dL (65-110); HDL Direct 40 mg/dL; Potassium 4.4 mmol/L (3.4-5.0); Sodium 141 mmol/L (137-145); Triglycerides 87 mg/dL (<150)
[2023-12-01 08:02] LABS: LDL Cholesterol Direct 49 mg/dL
[2023-12-01 08:53] LABS: Hemoglobin A1C 8.1 % (<5.7)
== END 2023-12-01 06:52 | disposition home or self-care (01) ==
PROVIDERS: PCP Nurse Practitioner; Visit Provider Nurse Practitioner
DX: E78.5 Hyperlipidemia, unspecified (principal); E11.9 Type 2 diabetes mellitus without complications
CPT/HCPCS: 36415; 80053; 80061; 83036

== ENCOUNTER 2024-02-05 12:21 | Emergency (ER) | payer MEDICARE, SELFPAY ==
[2024-02-05 12:40] VITALS: BP 125/61; PULSE 71; RESP 16; TEMP 36.3; O2SAT 98
--- NOTE | 2024-02-05 12:55 | ED.WOUNDLAC ---
HPI - Wound/Laceration General Chief Complaint: Wound/Laceration Stated Complaint: cut right arm Time Seen by Provider: 02/05/24 12:55 Source: patient, RN notes reviewed and old records reviewed Mode of arrival: ambulatory Limitations: no limitations History of Present Illness HPI narrative: Patient presents with complaints of skin tear to the right arm. He reports that he ran into a wooden wall in the garage, causing a skin tear and some associated bruising to the right forearm. There is no active bleeding on arrival. Patient reports that he did not clean the wound or put a dressing on it. He denies other injury and trauma. Voices no other concerns or complaints at this time. Related Data Home Medications Medication Instructions Recorded Confirmed aspirin 81 mg tablet,delayed 81 mg PO DAILY 12/01/23 02/05/24 release (Adult Low Dose Aspirin) Allergies Allergy/AdvReac Type Severity Reaction Status Date / Time codeine Allergy Intermediate Itching Verified 02/05/24 12:24 Review of Systems Review of Systems: All systems reviewed & are unremarkable except as noted in HPI and below Constitutional: Constitutional: Reports no additional constitutional complaints ENT: Reports system reviewed and no additional complaints, except as documented Cardiovascular: Cardiovascular: Reports no additional cardiovascular complaints Respiratory: Respiratory: Reports no additional respiratory complaints Gastrointestinal: Gastrointestinal: Reports no additional gastrointestinal complaints Integumentary/Breasts: Skin/Breast: Reports as per HPI [facility] Past Medical History Medical History CVA (cerebral vascular accident) PFO Degenerative disc disease, lumbar Diabetic eye exam exam on 07/19/2018 Dr. Jim López M.D. Erectile dysfunction due to diseases classified elsewhere Exocrine pancreatic insufficiency Generalized anxiety disorder Hemoglobin A1c less than 7.0% Hypertensive heart disease without heart failure (12/10/15) PFO (patent foramen ovale) s/p closure Poorly controlled diabetes mellitus Testicular hypogonadism Type 2 diabetes mellitus without complications Uncontrolled type 2 diabetes mellitus with insulin therapy Surgical History Surgical History History of inguinal hernia repair Family History Family History Father Family history of lung cancer Other Family history of arthritis Social History Social History Smoking packs per day: 0.2 Smoking cigarettes per day: 4.0 Years smoked: 25 Smoking pack-years: 5.00 Smoking status: Current every day smoker Tobacco type: cigarettes and cigars Second hand tobacco smoke exposure: Yes Additional smoking assessment comments: Pt said he quit smoking 3 days ago, too much money Alcohol intake: never Substance use: never Substance use type: does not use Concerned About Future Housing: No Difficulty Paying Gas/Electric Bills: No Difficulty Paying for Meds: No Currently Unemployed: No Comments At the time of my signature, I reviewed and agree with the nursing past medical, surgical, social, and family history. There is no relevant family history pertinent to the patient complaint. Exam Const: General: cooperative, no acute distress, alert and awake Orientation/consciousness: oriented to person, oriented to place and oriented to time HENMT: Head: normal to inspection Resp: Effort & Inspection: normal respiratory effort and able to speak in complete sentences Auscultation: clear to auscultation bilaterally, no crackles, no rales, no rhonchi and no wheezes Cardio: Palpation: normal PMI Rate: regular rate Rhythm: regular rhythm Heart sounds: S1 normal heart sound present and S2 normal heart sound present Skin:
== END 2024-02-05 13:26 | disposition home or self-care (01) ==
PROVIDERS: Emergency Provider Nurse Practitioner Family; PCP Nurse Practitioner
DX: S51.811A Laceration without foreign body of right forearm, initial encounter (principal); W22.09XA Striking against other stationary object, initial encounter; I11.9 Hypertensive heart disease without heart failure; E11.9 Type 2 diabetes mellitus without complications; M51.369 Other intervertebral disc degeneration, lumbar region without mention of lumbar back pain or lower extremity pain; Z86.73 Personal history of transient ischemic attack (TIA), and cerebral infarction without residual deficits; Z79.82 Long term (current) use of aspirin
CPT/HCPCS: 99212; G0463

== ENCOUNTER 2024-04-20 07:01 | Outpatient (CLI) | payer MEDICARE, SELFPAY ==
[2024-04-20 08:19] LABS: Alanine Aminotransferase 16 U/L (6-50); Albumin Level 4.3 g/dL (3.5-5.1); Alkaline Phosphatase 71 U/L (38-126); Anion Gap 5 mmol/L (4-12); Aspartate Amino Transferase 22 U/L (17-59); Bilirubin,Total 0.5 mg/dL (0.2-1.3); Blood Urea Nitrogen 22 mg/dL (9-20); Calcium 9.5 mg/dL (8.4-10.2); Carbon Dioxide 26 mmol/L (22-30); Chloride 108 mmol/L (98-107); Cholesterol 153 mg/dL (0-200); Estimated Glomerular Filt Rate > 60; Glucose 193 mg/dL (65-110); HDL Direct 44 mg/dL; Potassium 4.1 mmol/L (3.4-5.0); Sodium 139 mmol/L (137-145); Triglycerides 131 mg/dL (<150)
[2024-04-20 08:30] LABS: LDL Cholesterol Direct 74 mg/dL
[2024-04-20 08:49] LABS: Prostate Specific Antigen 1.9 ng/mL (< OR = 4.0)
[2024-04-20 10:26] LABS: Hemoglobin A1C 8.8 % (<5.7)
[2024-04-20 12:16] LABS: Creatinine Urine 143.1 mg/dL
== END 2024-04-20 07:02 | disposition home or self-care (01) ==
LOC: ANHLAB 07:02
PROVIDERS: PCP Nurse Practitioner; Visit Provider Nurse Practitioner
DX: E78.5 Hyperlipidemia, unspecified (principal); E11.9 Type 2 diabetes mellitus without complications; Z12.5 Encounter for screening for malignant neoplasm of prostate
CPT/HCPCS: 36415; 80053; 80061; 82043; 83036; 84153; G0103

== ENCOUNTER 2024-11-16 07:06 | Outpatient (CLI) | payer MEDICARE, SELFPAY ==
--- OUTSIDE RECORDS SUMMARY | 2024-11-16 07:08 | XMS_ITS | Clinical Summary ---
Author Organization [facility] Address [address] [place], [place] [id number] Care Team Providers Care Test Puller Name Role Phone Jarocho Kate Primary Care Provider Unavail able Social History Tobacco Use Types Packs/Day Years Used Date Smoking Tobacco: Never Assessed Sex and Gender Information Value Date Recorded Sex Assigned at Not on file Legal Sex Male 4:24 PM CDT Gender Identity Not on file Sexual Orientation Not on file Last Filed Vital Signs Vital Sign Reading Time Taken Comments Blood Pressure 176/64 11/21/2012 2:55 PM CDT Pulse 64 11/21/2012 2:55 PM CDT Temperature - - Respiratory Rate - - Oxygen Saturation - - Inhaled Oxygen Concentration - - Weight 83 kg (183 lb) 11/21/2012 2:55 PM CDT Height 165.1 cm (5' 5) 11/21/2012 2:55 PM CDT Body Mass Index 30.45 11/21/2012 2:55 PM CDT Plan of Treatment Health Maintenance Due Date Last Done Comments Colorectal Cancer Screening Colonoscopy (10 Years) 1955 Hepatitis C 1973 Zoster Vaccines (1 of 2) 2005 COVID-19 Vaccine ( season) 2024 04/30/2021, 07/27/2020, 07/27/2020, Additional history exists DTaP, Tdap and Td Vaccines (4 - Td or Tdap) 03/04/2027 03/04/2017, 10/28/2011, 11/30/2006 RSV Immunization or 60+ Years (1 - 1-dose 75+ series) 2030 Pneumococcal Vaccine: 50+ Years Completed 01/29/2020, 03/20/2015, 03/19/2015, Additional history exists Meningococcal B Vaccine Aged Out No l onger eligible based on patient's age to complete this topic Meningococcal Vaccine Aged Out No aayush dayan eligible based on patient's age to complete this topic RSV Immunizations Under 20 Months Aged Out No longer eligible based on patient's age to complete this topic Care Teams Test Puller Relationship Specialty Start Date End Date Jarocho Kate PA PCP - General 07/10/12
[2024-11-16 08:47] LABS: Alanine Aminotransferase 15 U/L (6-50); Albumin Level 4.3 g/dL (3.5-5.1); Alkaline Phosphatase 69 U/L (38-126); Anion Gap 9 mmol/L (4-12); Aspartate Amino Transferase 23 U/L (17-59); Bilirubin,Total 0.3 mg/dL (0.2-1.3); Blood Urea Nitrogen 40 mg/dL (9-20); Calcium 9.6 mg/dL (8.4-10.2); Carbon Dioxide 21 mmol/L (22-30); Chloride 108 mmol/L (98-107); Cholesterol 254 mg/dL (0-200); Estimated Glomerular Filt Rate > 60; Glucose 194 mg/dL (65-110); HDL Direct 31 mg/dL; Potassium 4.9 mmol/L (3.4-5.0); Sodium 138 mmol/L (137-145); Total Protein 7.6 g/dL (6.3-8.2); Triglycerides 245 mg/dL (<150)
[2024-11-16 10:18] LABS: Hemoglobin A1C 8.2 % (<5.7)
== END 2024-11-16 07:07 | disposition home or self-care (01) ==
LOC: ANHLAB 07:07
PROVIDERS: PCP Nurse Practitioner; Visit Provider Nurse Practitioner
DX: E78.5 Hyperlipidemia, unspecified (principal); E11.9 Type 2 diabetes mellitus without complications
CPT/HCPCS: 36415; 80053; 80061; 83036

== ENCOUNTER 2024-12-26 16:48 | Outpatient (CLI) | payer MEDICARE, SELFPAY ==
--- OUTSIDE RECORDS SUMMARY | 2024-12-26 16:51 | XMS_ITS | Clinical Summary ---
Author Organization [facility] Address [address] [place] [address] Care Team Providers Care Bicycle Ii Assembler Name Role Phone Deonte Nguyễn DO Primary Care Provider [phone] Source Comments [facility] Affiliates and Associated Physician Practices is amultiple site organization consisting of ambulatory clinics and hospital sitesin [place], [place], [place] and [place]. This disclosure is being madepursuant to the Care Everywhere program and may not contain all information available regarding this patient. Last updated 18.[facility] Allergies Active Allergy Reactions Criticality Noted Date Comments Codeine Itching Medium 10/04/2020 Medications * Be aware that medications may not be up to date on this document. Alwaysverify current medications with the patient. cariprazine (VRAYLAR) 3 MG capsule Take 3 mg by mouth once daily Every evening Active olopatadine (PATANOL) 0.1 % ophthalmic solution Instill 1 drop into both eyes 2 times daily Active fenofibrate micronized (LOFIBRA) 67 MG capsule Take 67 mg by mouth once daily Take with largest meal of the day. Active morphine CR 12hr (MS CONTIN) 30 MG tablet Take 30 mg by mouth every 12 hours Active simvastatin (ZOCOR) 80 MG tablet Take 80 mg by mouth at bedtime Active omeprazole (PRILOSEC) 40 MG capsule Take 40 mg by mouth daily before breakfast Active tamsulosin (FLOMAX) 0.4 MG capsule Take 0.4 mg by mouth once daily At the same time every day after a meal. Active amLODIPine (NORVASC) 10 MG tablet Take 10 mg by mouth once daily Active metFORMIN (GLUCOPHAGE) 1000 MG tablet Take 2,000 mg by mouth once daily Takes 2,000 mg with lunch Active finasteride (PROSCAR) 5 MG tablet Take 5 mg by mouth once daily Active SITagliptin (JANUVIA) 100 MG tablet Take 100 mg by mouth once daily Active aspirin (ASPIRIN) 81 MG chew tablet Take 81 mg by mouth once daily Active Active Problems Problem Noted Date Diagnosed Date PFO (patent foramen ovale) 10/13/2020 History of type 2 diabetes mellitus 10/13/2020 Cerebrovascular accident (CVA) 10/04/2020 Cerebrovascular accident Hypertension Dyslipidemia Paroxysmal atrial fibrillation Patent foramen ovale Immunizations Immunization Administration Dates Next Due Covid Moderna primary monovalent 12+ yr 0.5mL ,06/29/2020 Family History Medical History Relation Name Comments None Known Brother 1 None Known Brother 2 None Known Brother 3 None Known Brother 4 None Known Brother 5 Cancer Father None Known Maternal Grandfather None Known Maternal Grandmother Lung Disease Mother None Known Paternal Grandfather None Known Paternal Grandmother None Known Sister 1 None Known Sister 2 None Known Sister 3 Relation Name Status Comments Brother 1 Alive Brother 2 Alive Brother 3 Alive Brother 4 Alive Brother 5 Alive Father Maternal Grandfather Maternal Grandmother Mother small lung Paternal Grandfather Paternal Grandmother Sister 1 Alive Sister 2 Alive Sister 3 Alive Social History Tobacco Use Types Packs/Day Years Used Date Smoking Tobacco: Every Day Pipe Smokeless Tobacco: Never Tobacco Cessation:Counseling Given: Yes Comments:pipe tobacco about 10/day Alcohol Use Standard Drinks/Week Comments Never 0 (1 standard drink = 0.6 oz pur e alcohol) PHQ-2 Answer Date Recorded PHQ2 TOTAL SCORE 0 10/05/2020 Sex and Gender Information Value Date Recorded Sex Assigned at Not on file Legal Sex Male 6:57 PM CDT Gender Identity Not on file Sexual Orientation Not on file Occupation Industry Job Start Date Job End Date Retired Not on file Not on file Not on file Last Filed Vital Signs Vital Sign Reading Time Taken Comments Blood Pressure 110/70 07/21/2021 1:02 PM CDT Pulse 66 07/21/2021 1:02 PM CDT Temperature 36.5 C (97.7 F) 07/21/2021 1:02 PM CDT Respiratory Rate 18 01/22/2021 12:28 PM CDT Oxygen Saturation 97% 07/21/2021 1:02 PM CDT Inhaled Oxygen Concentration - - Weight 77.1 kg (170 lb) 07/21/2021 1:02 PM CDT Height 165.1 cm (5' 5) 07/21/2021 1:02 PM CDT Body Mass Index 28.29 07/21/2021 1:02 PM CDT Plan of Treatment Health Maintenance Due Date Last Done Comments COLOGUARD (AGES 45-75) - COLON CA SCREENING 1955 COLON MONITORING 1955 COLONOSCOPY - COLON CA SCREENING 1955 CT COLONOGRAPHY - COLON CA SCREENING 1955 Colorectal Cancer Screening 1955 FIT - COLON CA SCREENING 1955 FLEX SIG - COLON CA SCREENING 1955 HEPATITIS C SCREENING 01/21/1973 DTAP/TDAP/TD VACCINES (1 - Tdap) 1974 PNEUMOCOCCAL VACCINE 50+ (1 of 2 - PCV) 1974 ZOSTER VACCINE (1 of 2) 2005 AAA SCREENING 01/27/2020 COVID-19 VACCINE (3 - season) 2024 07/27/2020, 06/29/2020 SCREENING FOR DIABETES 01/23/2024 , 01/21/2021, 01/21/2021, Additional history exists DEPRESSION SCREENING 05/02/2024 INFLUENZA VACCINE (#1) 2024 Respiratory Syncytial Virus (RSV) Vaccine Pt: or over 60 yrs (1 - 1-dose 75+ series) 2030 HEPATITIS B VACCINE Aged Out No longe r eligible based on patient's age to complete this topic HIB VACCINE Aged Out No longer eligi ble based on patient's age to complete this topic HPV VACCINE Aged Out No longer eligi ble based on patient's age to complete this topic MENINGOCOCCAL (Group B) VACCINE SHARED DECISION-MAKING Aged Out No longer eligible based on patient's age to complete this topic MENINGOCOCCAL GROUPS A/C/Y/W VACCINE Aged Out No longer eligible based on patient's age to complete this topic Procedures Procedure Name Priority Date/Time Associated Diagnosis Comments GLUCOSE - POINT OF CARE Routine 01/22/2021 8:04 AM CDT from Last 3 Months or Most Recently Relevant to Health Maintenance Results * (ABNORMAL) GLUCOSE - POINT OF CARE (01/22/2021 8:04 AM CDT) Glucose WB/POC 146(H) 70 - 106 mg/dL 01/22/2021 8:12 AM CDT [facility] Specimen Type Cap Fingerstick 2020 8:12 AM CDT [facility] Blood BLOOD SPECIMEN / Unknown 01/22/2021 8:04 AM CDT 01/22/2021 8:12 AM CDT us Nash Caldera MD LAB - POINT OF CARE O RDERABLES Final Result Performing Organization Address City/State/[facility] Co de Phone Number [facility] [address] [phone] from Last 3 Months or Most Recently Relevant to Health Maintenance Insurance [facility] MANAGED MEDICARE ADV Advance Directives * Full Code (Latest Code Status on File) Date Activated Date Inactivated Comments 01/21/2021 2:58 PM 01/22/2021 2:30 PM * Full Code Date Activated Date Inactivated Comments 10/04/2020 11:23 PM 10/07/2020 2:48 PM Care Teams Bicycle Ii Assembler Relationship Specialty Start Date End Date Deonte Nguyễn DO [address] [place] [id number] PCP - General Internal Medicine 10/04/20
[2024-12-26 17:22] LABS: Add Urine Microscopic? YES; Appearance Urine Cloudy (Clear); Glucose Urine UA Trace mg/dL (Negative); Leukocyte Esterase Ur Negative LEU/UL (Negative); Nitrate Urine Negative (Negative); Non Pathogenic Casts 0-2; Specific Grav Ur 1.005 (1.001-1.035)
[2024-12-26 17:28] LABS: Alanine Aminotransferase 339 U/L (6-50); Albumin Level 4.0 g/dL (3.5-5.1); Alkaline Phosphatase 472 U/L (38-126); Anion Gap 11 mmol/L (4-12); Aspartate Amino Transferase 249 U/L (17-59); Bilirubin,Total 6.0 mg/dL (0.2-1.3); Blood Urea Nitrogen 16 mg/dL (9-20); Calcium 9.7 mg/dL (8.4-10.2); Carbon Dioxide 19 mmol/L (22-30); Chloride 107 mmol/L (98-107); Estimated Glomerular Filt Rate > 60; Glucose 199 mg/dL (65-110); Potassium 3.8 mmol/L (3.4-5.0); Sodium 137 mmol/L (137-145); Total Protein 7.7 g/dL (6.3-8.2)
== END 2024-12-26 16:49 | disposition home or self-care (01) ==
LOC: ANHLAB 16:49
PROVIDERS: PCP Nurse Practitioner; Visit Provider Nurse Practitioner
DX: E78.5 Hyperlipidemia, unspecified (principal); R19.5 Other fecal abnormalities
CPT/HCPCS: 36415; 80053; 81001

== ENCOUNTER 2025-01-01 12:54 | Outpatient (CLI) | payer MEDICARE, SELFPAY ==
--- NOTE | ~2025-01-01 | US_ITS ---
US abdomen limited INDICATION: Abnormal liver enzymes PROCEDURE: Realtime right upper abdominal ultrasound. COMPARISON: No prior studies for comparison. FINDINGS: Limited visualization of the pancreas although there is a possible mass of the pancreatic head. Correlation with CT or MRI abdomen with contrast recommended. Liver echotexture is normal without focal mass or intrahepatic biliary dilatation. There is normal directional flow in the portal vein. Gallbladder contains a 5 mm polyp. No definite gallstones are seen. There is gallbladder sludge. Common bile duct measures 10 mm. No sonographic Duarte's sign. IMPRESSION: 1: Possible pancreatic head mass. Correlation with CT or MRI abdomen with contrast recommended 2: Dilated common bile duct. No obstructing stone or mass identified. Recommend correlation with MRCP to exclude underlying choledocholithiasis or obstructing mass. 3: Gallbladder polyp measuring 4 mm. Gallbladder sludge. Reviewed, dictated and finalized at location O. IMPRESSION: 1: Possible pancreatic head mass. Correlation with CT or MRI abdomen with contr ast recommended 2: Dilated common bile duct. No obstructing stone or mass identified. Recommend correlation with MRCP to exclude underlying choledocholithiasis or obstructing mass. 3: Gallbladder polyp measuring 4 mm. Gallbladder sludge.
--- OUTSIDE RECORDS SUMMARY | 2025-01-01 13:11 | XMS_ITS | Clinical Summary ---
Author Organization [facility] Address [address] [place], [place] [id number] Care Team Providers Care Shoer Name Role Phone Jarocho Kate Primary Care [...] age to complete this topic Care Teams Shoer Relationship Specialty Start Date End Date Jarocho Kate PA PCP - General 07/10/12
--- OUTSIDE RECORDS SUMMARY | 2025-01-01 13:11 | XMS_ITS | Clinical Summary ---
Author Organization [facility] Address [address] [place] [address] Care Team Providers Care Manual Arts Therapy Teacher Name Role Phone Deonte Nguyễn DO Primary Care Provider [phone] Source Comments [facility] Affiliates and Associated Physician Practices is amultiple site organization consisting of ambulatory clinics and hospital sitesin [place], [place], [place] and [place]. This disclosure is being madepursuant to the Care Everywhere program and may not contain all information available regarding this patient. Last updated 18.[facility] Allergies Active Allergy Reactions Criticality Noted Date [...] - 106 mg/dL 01/22/2021 8:12 AM CDT [facility] Specimen Type Cap Fingerstick 2020 8:12 AM CDT [facility] Blood BLOOD SPECIMEN / Unknown 01/22/2021 8:04 AM CDT 01/22/2021 8:12 AM CDT us Nash Caldera MD LAB - POINT OF CARE O RDERABLES Final Result Performing Organization Address City/State/[facility] Co de Phone Number [facility] [address] [phone] from Last 3 Months or Most Recently Relevant to Health Maintenance Insurance [facility] MANAGED MEDICARE ADV Advance Directives * Full Code (Latest Code Status on File) Date Activated Date Inactivated Comments 01/21/2021 2:58 PM 01/22/2021 2:30 PM * Full Code Date Activated Date Inactivated Comments 10/04/2020 11:23 PM 10/07/2020 2:48 PM Care Teams Manual Arts Therapy Teacher Relationship Specialty Start Date End Date Deonte Nguyễn DO [address] [place] [id number] PCP - General Internal Medicine 10/04/20
== END 2025-01-01 12:55 | disposition home or self-care (01) ==
PROVIDERS: PCP Nurse Practitioner; Visit Provider Nurse Practitioner
DX: K83.8 Other specified diseases of biliary tract (principal); K82.4 Cholesterolosis of gallbladder; K82.8 Other specified diseases of gallbladder; R19.5 Other fecal abnormalities; R74.8 Abnormal levels of other serum enzymes
CPT/HCPCS: 76705

== ENCOUNTER 2025-01-11 08:30 | Outpatient (CLI) | payer MEDICARE, SELFPAY ==
--- NOTE | ~2025-01-11 | CT_ITS ---
EXAMINATION: CT abdomen wo/w con DATE: 01/11/2025 09:34 INDICATION: Other specified disease of pancreas. Jaundice. TECHNIQUE: Computed tomography (CT) of the abdomen and pelvis was performed without and with 100 mL Omnipaque-350 intravenous contrast utilizing a standard pancreas protocol. Automated exposure control and iterative reconstruction technique were employed. The dose-length product was 778.01 mGy-cm. COMPARISON: None FINDINGS: Lung bases are clear. Heart size is normal. Atherosclerotic coronary artery calcifications. ASD occlusion device. No pericardial or pleural effusion. There is mild to moderate intrahepatic biliary ductal dilation. There is prominent dilation of the common bile duct measuring up to 1.7 cm which tapers abruptly at the head of the pancreas without evident obstructing stone. The main pancreatic duct is dilated to 5 mm at the neck of the pancreas weren't relatively abruptly tapers. There is approximately 2.5 cm ill-defined hypoenhancing region at the head of the pancreas which concerning for pancreatic cancer. 1.9 x 1.3 cm soft tissue density nodule situated between the anterior margin of the tail of the pancreas and the inferior margin of the proximal stomach. Gallbladder, spleen and bilateral adrenal glands are normal. There are small bilateral renal cysts, the largest measuring up to 1.1 cm at the right kidney. Diverticulosis along the visualized descending and sigmoid colon without adjacent from trace stranding to suggest diverticulitis. Small bowel and appendix are normal. No pathologically enlarged abdominal lymphadenopathy. Moderate to severe spondylosis at L5-S1 with mild spondylosis more cephalad lumbar and lower thoracic spine. Chronic appearing mild likely physiologic anterior wedging at T8, T10 and T11. IMPRESSION: 1. Intra and extra hepatic biliary ductal dilation as well as dilation of the main pancreatic duct both tapering rather abruptly at the head of the pancreas in the region of a 2.5 similar ill-defined hypoechoic enhancing region which concerning for primary pancreatic cancer. Could consider ERCP with endoscopic ultrasound and biopsy if indicated. 2. 1.9 x 1.3 cm soft tissue density nodule situated between the tail the pancreas and the stomach. Differential would include collapsed gastric diverticulum, gastrointestinal tumor, pancreatic neoplasm either benign or malignant, small collapsed pseudocyst related to prior pancreatitis or a metastatic or reactive lymph node. This could similarly be further evaluated with endoscopic ultrasound. Reviewed, dictated and finalized at location A. IMPRESSION: 1. Intra and extra hepatic biliary ductal dilation as well as dilation of the m ain pancreatic duct both tapering rather abruptly at the head of the pancreas i n the region of a 2.5 similar ill-defined hypoechoic enhancing region which con cerning for primary pancreatic cancer. Could consider ERCP with endoscopic ultr asound and biopsy if indicated. 2. 1.9 x 1.3 cm soft tissue density nodule situated between the tail the pancre as and the stomach. Differential would include collapsed gastric diverticulum, gastrointestinal tumor, pancreatic neoplasm either benign or malignant, small c ollapsed pseudocyst related to prior pancreatitis or a metastatic or reactive l ymph node. This could similarly be further evaluated with endoscopic ultrasound .
--- OUTSIDE RECORDS SUMMARY | 2025-01-11 08:45 | XMS_ITS | Clinical Summary ---
Author Organization [facility] Address [address] [place] [address] Care Team Providers Care Churn Driller Name Role Phone Deonte Nguyễn DO Primary Care Provider [phone] Source Comments [facility],non-[facility]iliates and Associated Physician Practices is amultiple site organization consisting of ambulatory clinics and hospital sitesin [place], [place], [place] and [place]. This disclosure is being madepursuant to the Care Everywhere program and may not contain all information available regarding this patient. Last updated 18.[facility] Allergies Active Allergy Reactions Criticality Noted Date [...] - 106 mg/dL 01/22/2021 8:12 AM CDT [facility] Specimen Type Cap Fingerstick 2020 8:12 AM CDT [facility] Blood BLOOD SPECIMEN / Unknown 01/22/2021 8:04 AM CDT 01/22/2021 8:12 AM CDT us Nash Caldera MD LAB - POINT OF CARE O RDERABLES Final Result Performing Organization Address City/State/[facility] Co de Phone Number [facility] [address] [phone] from Last 3 Months or Most Recently Relevant to Health Maintenance Insurance [facility]NA[facility] MEDIC[facility] ADV Advance Directives * Full Code (Latest Code Status on File) Date Activated Date Inactivated Comments 01/21/2021 2:58 PM 01/22/2021 2:30 PM * Full Code Date Activated Date Inactivated Comments 10/04/2020 11:23 PM 10/07/2020 2:48 PM Care Teams Churn Driller Relationship Specialty Start Date End Date Deonte Nguyễn DO [address] [place] [id number] PCP - General Internal Medicine 10/04/20
== END 2025-01-11 08:31 | disposition home or self-care (01) ==
PROVIDERS: PCP Nurse Practitioner; Visit Provider Nurse Practitioner
DX: K86.89 Other specified diseases of pancreas (principal); R17 Unspecified jaundice; R74.8 Abnormal levels of other serum enzymes
CPT/HCPCS: 74170; Q9967